=== PATIENT | female | born 1995 | race Caucasian/White ===

== ENCOUNTER → 2018-12-06 17:02 | Outpatient (CLI) | payer OTHER, SELFPAY ==
[2018-12-09 18:03] LABS: Neisseria gonorrhoeae, NAA Negative (Negative)
== END ==
PROVIDERS: Visit Provider Obstetrics & Gynecology
DX: Z72.51 High risk heterosexual behavior (principal)
CPT/HCPCS: 87491; 87591

== ENCOUNTER → 2021-01-13 08:36 | Outpatient (POV) | payer BC, SELFPAY | PROVIDERS: Visit Provider Dermatology | DX: Z00.00 Encounter for general adult medical examination without abnormal findings (principal) ==

== ENCOUNTER → 2021-03-26 21:11 | Outpatient (CLI) | payer BC, SELFPAY | PROVIDERS: Visit Provider Nurse Practitioner Family | DX: Z20.822 Contact with and (suspected) exposure to COVID-19 (principal); U07.1 COVID-19 | CPT/HCPCS: C9803; U0003; U0005 ==

== ENCOUNTER → 2021-09-17 09:49 | Outpatient (CLI) | payer BC, SELFPAY ==
[2021-09-17 10:42] LABS: Basophils # 0.2 K/mm3 (0-0.2); Basophils % 1.2 % (0.1-2.0); Eosinophils # 0.5 K/mm3 (0.0-0.4); Eosinophils % 3.8 % (0.1-12.0); Hematocrit 43.2 % (37.0-47.0); Hemoglobin 14.9 g/dL (12.2-16.2); Lymphocytes # 2.6 K/mm3 (0.7-4.5); Lymphocytes % 22.2 % (10-50); Mean Corpuscular HGB Conc 34.5 g/dL (31.8-35.4); Mean Corpuscular Hemoglobin 30.4 pg (27.0-31.2); Mean Corpuscular Volume 88.1 fl (81-99); Mean Platelet Volume 8.5 fl (7.4-10.4); Monocytes # 0.6 K/mm3 (0.1-1.0); Monocytes % 4.6 % (1.7-9.3); Neutrophils # 8.1 K/mm3 (1.8-7.8); Neutrophils % 68.2 % (37.0-80.0); Platelet Count 309 K/mm3 (142-424); Red Blood Count 4.91 M/mm3 (4.20-5.40); White Blood Count 11.9 K/mm3 (4.8-10.8)
[2021-09-17 13:40] LABS: Strep Scrn Group A (Rapid) Negative (Negative)
== END ==
PROVIDERS: PCP Family Medicine; Visit Provider Physician Assistant
DX: Z20.822 Contact with and (suspected) exposure to COVID-19 (principal); J02.9 Acute pharyngitis, unspecified
CPT/HCPCS: 36415; 85025; 87275; 87276; 87430; C9803; U0003; U0005

== ENCOUNTER 2021-11-24 19:29 | Emergency (ER) | payer BC, SELFPAY ==
--- NOTE | 2021-11-24 19:41 | HMH.EDUTC ---
[facility] [place] Disposition Clinical Impression: Contact dermatitis Qualifiers: Contact dermatitis type: allergic Contact dermatitis trigger: unspecified trigger Qualified Code(s): L23.9 - Allergic contact dermatitis, unspecified cause Disposition: Home, Self-Care Condition on Discharge: Good Instructions: DI for Contact Dermatitis Additional Instructions: Try to identify and avoid contact with the offending substance. Don't start the oral steroids until tomorrow. Don't put the topical steroids (triamcinolone) on your face or your groin. Follow up with your regular doctor. GO TO THE ER FOR ANY WORSENING SYMPTOMS OR CONCERNS Prescriptions: diphenhydrAMINE HCL [Diphenhydramine HCl] 25 mg PO Q6HP PRN #30 cap PRN Reason: Itching Transmission Status: Received by [facility] #[id number] methylPREDNISolone [Medrol] 4 mg PO DIRECTED 6 Days #21 packet Transmission Status: Received by [facility] #[id number] Triamcinolone Acetonide 1 applicatio TP TIDP PRN 7 Days #1 gm PRN Reason: Itching Transmission Status: Received by [facility] #[id number] Referrals: Eric Sandoval MD [Primary Care Provider] - Time of Disposition: 20:08 Medical Decision Making - Medical Records Medical records reviewed: No: I reviewed the patient's medical records. - [place] Inquiry Pt receiving controlled substance: No Vital Signs: 11/24/21 19:43 11/24/21 20:12 Temperature 98.7 F 98.7 F Temperature Source Oral Oral Pulse Rate 78 Pulse Rate [Left Radial] 78 Respiratory Rate 17 17 Blood Pressure 124/75 Blood Pressure [Right Arm] 124/75 Blood Pressure Mean [Right Arm] 91 02 Sat by Pulse Oximetry 99 Orders (Tests/Meds): ED MEDICATIONS Discontinued Medications Generic Name Dose Route Start Last Admin Trade Name Freq PRN Reason Stop Dose Admin Methylprednisolone Sodium Succinate 125 mg 11/24/21 19:59 11/24/21 20:02 Methylprednisolone Sod Succ 125mg Vial IM 11/24/21 20:00 125 mg ON[address] [facility] [place] HPI - General Stated complaint: Skin rash Time Seen by Provider: 11/24/21 19:41 - History of Present Illness Provider Complaint: She states that for the past 2 to 3 weeks she has had a itchy rash on her trunk, face, neck and arms. It started out as a small spot on right forearm and then spread from there. She denies any known exposure to poison t[place]. She denies using any new lotions or skin care products. She has never been sensitive to things like that any way. She denies any fever or chills, and she feels ok other than being drove crazy by the itching. - Related Data Home Medications Medication Instructions Recorded Confirmed levonorgestrel 20 mcg/24 hours (7 INTRAUTERI 03/26/21 03/26/21 yrs) 52 mg intrauterine device Previous Rx's Medication Instructions Recorded Triamcinolone Acetonide 1 applicatio TP TIDP PRN 7 Days #1 11/24/21 gm diphenhydrAMINE HCL 25 mg PO Q6HP PRN #30 cap 11/24/21 [Diphenhydramine HCl] methylPREDNISolone [Medrol] 4 mg PO DIRECTED 6 Days #21 11/24/21 packet Allergies Allergy/AdvReac Type Severity Reaction Status Date / Time No Known Allergies Allergy Verified 03/26/21 11:18 [facility] History - Hepatitis A Screen Attestation statement:: This patient has been screened for Hepatitis A risk factors. I have reviewed the patient's past medical history: Yes Laterality Cases: Bilateral: Tonsillectomy Amputation: No Fractures: No Comment: [place] teeth removed - Social History Smoking Status: Never smoker Alcohol Intake: current Alcohol Intake Frequency:: holidays/special occasions only Substance Use Type: denies use Occupational Status: employed Family Hx:: No significant family history ROS Obtained: Yes All systems reviewed & no additional complaints - Constitutional Constitutional: Denies chills, Denies fever(s) - Musculoskeletal Musculoskeletal: Denies joint pain - Integumentary/Breasts Skin/[place]
[2021-11-24 19:43] VITALS: BP 124/75; PULSE 78; RESP 17; TEMP 37.1; O2SAT 99; BMI 25.2
[2021-11-24 20:12] VITALS: BP 124/75; PULSE 78; RESP 17; TEMP 37.1
== END 2021-11-24 20:13 | disposition home or self-care (01) ==
PROVIDERS: Emergency Provider Nurse Practitioner Family; PCP Family Medicine
DX: L23.9 Allergic contact dermatitis, unspecified cause (principal)
CPT/HCPCS: 96372; 99212; G0463

== ENCOUNTER 2022-07-06 00:50 | Emergency (ER) | payer BC, SELFPAY ==
[2022-07-06 00:51] VITALS: BP 128/83; PULSE 93; RESP 17; TEMP 36.5; O2SAT 99; BMI 28.3
[2022-07-06 01:00] VITALS: BP 120/81; PULSE 94; RESP 18; O2SAT 99
--- NOTE | 2022-07-06 01:19 | XR_ITS ---
PROCEDURE INFORMATION: Exam: XR Right Shoulder Exam date and time: 07/06/2022 1:16 AM Age: 26 years old Clinical indication: Patient HX: C/O right posterior shoulder pain; Additional info: Pain, no injury TECHNIQUE: Imaging protocol: Radiologic exam of the Right shoulder. Views: 2 or more views. COMPARISON: CR XR CHEST CHP 1V 01/20/2022 9:31 AM FINDINGS: Bones/joints: Normal. Soft tissues: Normal. IMPRESSION: No acute findings.
--- NOTE | 2022-07-06 01:19 | XR_ITS ---
PROCEDURE INFORMATION: Exam: XR Right Clavicle, Complete Exam date and time: 07/06/2022 1:19 AM Age: 26 years old Clinical indication: Patient HX: C/O posterior right shoulder pain; Additional info: Pain, no injury TECHNIQUE: Imaging protocol: Radiologic exam of the Right clavicle. Complete exam. Views: Any number of views. COMPARISON: CR XR SHOULDER RT MIN 2V 07/06/2022 1:16 AM FINDINGS: Bones/joints: Normal. Soft tissues: Normal. IMPRESSION: No acute findings.
[2022-07-06 02:00] VITALS: BP 112/77; PULSE 98; RESP 20; O2SAT 98
--- NOTE | 2022-07-06 02:59 | HMH.EDEXTP ---
Discharge Plan Disposition Patient Disposition: Home, Self-Care Prescriptions Prescriptions: New prednisone [prednisone] 20 mg tablet 20 mg PO BID Qty: 10 0RF No Action Mirena 20 mcg/24 hours (6 yrs) 52 mg intrauterine device INTRAUTERI [id number]-[id number] [Bromfed DM] 2-30-10 mg/5 mL syrup 7.5 ml PO Q4-6H PRN (Reason: cold symptoms) Qty: 200 0RF prednisone 10 mg tablet 10 mg PO BID 4 Days Qty: 8 0RF omeprazole 20 mg capsule,delayed release(DR/EC) 20 mg PO DAILY Qty: 30 2RF diphenhydramine HCl 25 MG capsule 25 mg PO Q6HP PRN (Reason: Itching) Qty: 30 0RF Referrals Follow up/Referrals: Kate Lewis PA [Primary Care Provider] - See instructions Clinical Impressions Clinical Impression: Upper extremity pain Stand Alone Forms Stand Alone Forms: Work/School Release Instructions Patient Instructions: DI for Back Strain or Sprain Discharge ED Provider: Ravinder Avila Extremity Problem HPI General Chief complaint: Extremity Problem,Nontraumatic Stated complaint: Right arm pain and numbness Time Seen by Provider: 07/06/22 02:59 Mode of Arrival: Family Vehicle Source of Information: Patient and Medical Record Limitations: No Limitations Description of Symptoms (Recalled from ER Triage Doc. by RN): Pt c/o pain with numbness to R shoulder and scapula area. States this pain radiates down R arm. She denies any numbness or tingling down extremity. States it began when she was laying in bed @ 2100 (07/05) and she was laying on her R side and as she turned to her left side, the pain and numbness began. 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 She also reports the pain greatly worsens when she extends her shoulder back and raises it. History of Present Illness HPI Narrative: acute rt shoulder /scapular pain with rad upper ext - no fever/rash or trauma - no iv drug use Complaint: extremity pain Onset (ago): hour(s) Consistency: intermittent Location: right and upper extremity Related Data Home Medications Medication Instructions Recorded Confirmed levonorgestrel 20 mcg/24 hours (8 intrauterine 03/26/21 03/26/21 yrs) 52 mg intrauterine device (Mirena) Previous Rx's Medication Instructions Recorded diphenhydramine HCl 25 mg capsule 25 mg PO Q6HP PRN Itching #30 caps 11/24/21 [id number]-mijdbwasimrdrsg-TT 7.5 ml PO Q4-6H PRN cold symptoms 06/11/22 2 mg-30 mg-10 mg/5 mL oral syrup #200 mL (Bromfed DM) omeprazole 20 mg capsule,delayed 20 mg PO DAILY #30 caps 06/11/22 release prednisone 10 mg tablet 10 mg PO BID 4 days #8 tabs 06/11/22 prednisone 20 mg tablet 20 mg PO BID #10 tabs 07/06/22 Allergies Allergy/AdvReac Type Severity Reaction Status Date / Time No Known Allergies Allergy Verified 06/11/22 13:51 [facility] Disclaimer: The information contained in this section may have been updated after the patient was seen, as this information can be updated by other users. Social History Smoking Status: Current every day smoker alcohol intake: current substance use type: denies use current occupational status: employed Travel in the last 8 weeks: None ROS Obtained: Yes All systems reviewed & no additional complaints except as documented Physical Exam General General appearance: alert Head Head exam: normocephalic Eye Eye exam: Present PERRL and EOMI ENT ENT exam: Present mucous membranes moist Neck Neck exam: Present full ROM and trachea midline; Absent tenderness Respiratory Respiratory exam: Absent respiratory distress Cardiovascular Cardiovascular exam: Present regular rate Extremities Exam Extremities exam: Present full ROM Expanded Upper Extremity Exam Right: Forearm/Wrist exam: Present full ROM Hand exam: Present full ROM Neuromotor exam: Normal wrist extension Vascular exam: Normal radial pulse [place]
[2022-07-06 03:10] VITALS: BP 133/82; PULSE 80; RESP 19; TEMP 36.7; O2SAT 97
== END 2022-07-06 04:43 | disposition home or self-care (01) ==
PROVIDERS: Emergency Provider Emergency Medicine; PCP Student in an Organized Health Care Education/Training Program
DX: M79.601 Pain in right arm (principal); M25.511 Pain in right shoulder; R20.2 Paresthesia of skin; F17.210 Nicotine dependence, cigarettes, uncomplicated
CPT/HCPCS: 73000; 73030; 99284

== ENCOUNTER 2022-12-30 16:21 | Emergency (ER) | payer BC, SELFPAY ==
[2022-12-30 16:22] VITALS: BP 142/89; PULSE 72; RESP 18; TEMP 36.9; O2SAT 97; BMI 29.2
--- NOTE | 2022-12-30 16:28 | EXP.UTC ---
Discharge Plan Disposition Patient Disposition: Home, Self-Care Condition: Good Prescriptions Prescriptions: New ibuprofen [ibuprofen] 600 mg tablet 600 mg PO Q6HP PRN (Reason: Mild Pain) Qty: 30 0RF Referrals Follow up/Referrals: Micheal Akers DO [Staff Physician] - See instructions Provider,Referral, [Primary Care Provider] - See instructions Activity Restrictions/Add. Instructions Additional Instructions/Restrictions: Rest the extremity, Elevate the extremity as tolerated while you are resting. Use the crutches and the knee immobilizer for the next few days to rest your knee. Take ibuprofen for pain. I sent in a prescription to your pharmacy. Follow up with Dr. Akers (orthopedics). I put in a referral but you need to call his office and schedule an appointment. Follow up with your regular doctor. GO TO THE ER FOR ANY WORSENING SYMPTOMS Clinical Impressions Clinical Impression: Left knee sprain, Abrasion of knee, left Stand Alone Forms Stand Alone Forms: Work/School Release Instructions Patient Instructions: Knee Sprain, DI for Knee Sprain Discharge ED Provider: Rishabh Fink [facility] General Stated complaint: fall 12/26, left knee pain Time Seen by Provider: 12/30/22 16:28 History of Present Illness Provider Complaint: she states that she fell on 12/26. She came down on her left knee. Since then she has had left knee pain that is worse with walking and bearing weight. She also has an abrasion on the front of knee. She denies any other injury. Related Data Previous Rx's Medication Instructions Recorded ibuprofen 600 mg tablet 600 mg PO Q6HP PRN Mild Pain #30 12/30/22 tabs Allergies Allergy/AdvReac Type Severity Reaction Status Date / Time No Known Allergies Allergy Verified 10/05/22 14:20 [facility] Disclaimer: The information contained in this section may have been updated after the patient was seen, as this information can be updated by other users. Surgical History Hx of tonsillectomy Hx of wisdom tooth extraction Family History Other No significant family history Social History Smoking Status: Never smoker alcohol intake: current substance use type: denies use current occupational status: employed Travel in the last 8 weeks: None ROS Obtained: Yes All systems reviewed & no additional complaints except as documented Constitutional Constitutional: Denies chills and Denies fever(s) Eyes Eyes: Denies eye discharge ENT Ears, Nose, Mouth, and Throat: Denies dizziness, Denies otalgia and Denies sore throat Cardiovascular Cardiovascular: Denies chest pain Respiratory Respiratory: Denies shortness of breath, Denies chest congestion, Denies cough, Denies stridor and Denies wheezing Gastrointestinal Gastrointestingal: Denies nausea or vomiting Musculoskeletal Musculoskeletal: Reports as per HPI Integumentary/Breasts Skin/Breast: Reports as per HPI Neurologic Neurologic: Denies dizziness and Denies paresthesias Allergic/Immunologic Allergic/Immunologic: Denies wheezing Physical Exam General General appearance: alert and in no apparent distress Head Head exam: atraumatic, normocephalic and normal inspection Eye Eye exam: Present normal appearance, PERRL and EOMI ENT ENT exam: Present normal exam, normal oropharynx, mucous membranes moist, TM's normal bilaterally and normal external ear exam Neck Neck exam: Present normal inspection, full ROM and trachea midline; Absent meningismus or lymphadenopathy Chest Chest inspection: Present normal inspection and symmetric chest wall rise; Absent tenderness Respiratory Respiratory exam: Present normal lung sounds bilaterally; Absent respiratory distress Cardiovascular Cardiovascular exam: Present regular rate and normal rhythm; Absent JVD Abdominal E
--- NOTE | 2022-12-30 16:30 | XR_ITS ---
PROCEDURE INFORMATION: Exam: XR Left Knee Exam date and time: 12/30/2022 4:51 PM Age: 27 years old Clinical indication: Pain; Patient HX: Fell Tuesday injuring left knee. TECHNIQUE: Imaging protocol: Radiologic exam of the left knee. Views: 3 views. COMPARISON: No relevant prior studies available. FINDINGS: Bones/joints: No acute fracture or malalignment. No significant knee joint effusion. Soft tissues: Unremarkable. IMPRESSION: No evidence of acute osseous abnormality in the left knee.
[2022-12-30 18:04] VITALS: BP 142/89; PULSE 72; RESP 18; TEMP 36.9; O2SAT 97
== END 2022-12-30 18:05 | disposition home or self-care (01) ==
PROVIDERS: Emergency Provider Nurse Practitioner Family
DX: S83.92XA Sprain of unspecified site of left knee, initial encounter (principal); S80.212A Abrasion, left knee, initial encounter; W19.XXXA Unspecified fall, initial encounter
CPT/HCPCS: 73562; 99212; 99214; G0463